=== PATIENT | male | born 1970 | race Two or more races ===

== ENCOUNTER 2017-01-15 23:38 | Emergency (ER) | payer MEDICAID ==
[~2017-01-15] VITALS: Ht 175.3 cm; Wt 126.1 kg
[~2017-01-15 23:38] MED LIST: ALPR1TAB7 PO; CLON0.3T4 PO; HYD25T PO; HYDR-531 PO; METR500T PO; OMEP20CA74 PO; SACC250C PO; TRAM-297 PO
[2017-01-15 23:59] VITALS: BP 179/101
[2017-01-16 00:37] LABS: Basophils # (auto) 0.1 uL; Basophils % (auto) 0.7 % (0.0-2.0); Eosinophils # (auto) 0.3 uL; Eosinophils % (auto) 3.3 % (0.0-7.0); Hematocrit 44.6 % (41.0-53.0); Hemoglobin 15.1 g/dL (13.5-17.5); Lymphocytes # (auto) 2.7 uL; Mean Corpuscular Hemoglobin 28.5 pg (28.0-32.0); Mean Corpuscular Hgb Conc. 33.8 g/dL (32.0-36.0); Mean Corpuscular Volume 84.4 fL (80.0-100.0); Mean Platelet Volume 7.4 fL (7.4-10.4); Monocytes # (auto) 0.6 uL; Monocytes % (auto) 6.9 % (0.0-12.0); Neutrophils # (auto) 5.4 uL; Neutrophils % (auto) 59.1 % (37.0-80.0); Platelet Count (auto) 363 10^3/uL (140-450); Red Cell Distribution Width 13.5 % (11.6-16.0); White Blood Cell 9.1 10^3/uL (4.4-10.8)
[2017-01-16 00:55] LABS: Albumin 3.7 g/dL (3.4-5.0); BUN/Creatinine Ratio 8.7; Calcium 8.2 mg/dL (8.5-10.1)
[2017-01-16 00:58] LABS: Bilirubin, Total 0.3 mg/dL (0.2-1.0); Potassium 4.4 mmol/L (3.5-5.1); Total Protein 7.7 g/dL (6.4-8.2)
== END 2017-01-16 | disposition left against medical advice (07) ==
LOC: ER 23:38
DX: R73.9 Hyperglycemia, unspecified (principal); Z53.21 Procedure and treatment not carried out due to patient leaving prior to being seen by health care provider
CPT/HCPCS: 36415; 80053; 82962; 85025; J7030